=== PATIENT | female | born 1980 | race Two or more races ===

== ENCOUNTER 2016-12-22 13:08 | Emergency (ER) | payer MEDICAID ==
[~2016-12-22] VITALS: Ht 156.2 cm; Wt 70.0 kg
[~2016-12-22 13:08] MED LIST: CYCL1TAB29 PO; NAPR500 PO
[2016-12-22 13:15] VITALS: BP 131/74; PULSE 81; RESP 16; TEMP 98.1; O2SAT 98
[2016-12-22 13:30] VITALS: RESP 16; O2SAT 98
[2016-12-22 13:45] VITALS: BP 136/73; PULSE 64; RESP 16
[2016-12-22] MEDS ORDERED: ONDANSETRON HCL 4 MG/2 ML VIAL IV PUSH ONE (13:45)
[2016-12-22] MEDS ORDERED: KETOROLAC TROMETHAMINE 30 MG/ML (IVP) VIAL IV PUSH ONE (13:45)
[2016-12-22] MEDS ORDERED: SODIUM CHLOR 0.9% 1000 ML INJ 1,000 ML IV ONE (13:45)
[2016-12-22] MEDS ORDERED: SODIUM CHLORIDE 0.9% FLUSH 5 ML FLUSH IVF PRN (13:45)
--- NOTE | 2016-12-22 14:04 | PD ---
HPI Chief Complaint: Chest Pain Time Seen by Provider: 13:36 Travel History International Travel<30 days: No Contact w/Intl Traveler<30days: No Traveled to known affect area: No History of Present Illness HPI 36yo F with PMH of cervical disc herniation s/p surgery presents to the ED with c/o left sided chest pain along with stomach pain yesterday. However, now she has left headache, neck pain, upper back pain, and shoulder pain. Pain is worst with movement. Pt took advil and it did not help. +Nausea. Feels sob at times. States she has been very stress lately with her mother being sick. Denies any fever, cough, vomiting, abdominal pain. Abdominal pain from yesterday has resolved on its own. States headache feels like her usual headaches. No cardiac risk factor except occasional cig smoking. Denies any family history of sudden cardiac . PFSH Past Medical History Genitourinary: Yes (uti's) Thyroid Disease: Yes (no meds for) Tetanus Vaccination: > 5 Years Influenza Vaccination: No ?: Not LMP: 12/03/16 : 5 Para: 3 Miscarriage: 2 Past Surgical History Neurologic Surgery: Yes (c5 disc repl surg) Other Surgery: Yes (tummy tuck) Social History Alcohol Use: Yes (occas- wine) Tobacco Use: Yes (1-3 cigs once a week or less) Substance Use: No Allergies-Medications (Allergen,Severity, Reaction): Coded Allergies: Hydrocodone (Verified Allergy, Mild, RASH, 12/22/16) Penicillin (Verified Allergy, Unknown, UNKNOWN, 12/22/16) Reported Meds & Prescriptions Reported Meds & Active Scripts Active Acetaminophen Extra Strength (Acetaminophen) 500 Mg Tab 500 Mg PO Q6H PRN Flexeril (Cyclobenzaprine HCl) 10 Mg Tab 10 Mg PO Q8HR PRN Review of Systems Except as stated in HPI: all other systems reviewed are Neg Physical Exam Narrative GENERAL: 36yo F not in distress. SKIN: Warm and dry. HEAD: Atraumatic. Normocephalic. EYES: Pupils equal and round. No scleral icterus. No injection or drainage. ENT: No nasal bleeding or discharge. Mucous membranes pink and moist. NECK: Trachea midline. No JVD. CARDIOVASCULAR: Regular rate and rhythm. No murmur appreciated. CHEST WALL: +TTP left chest. No rash. RESPIRATORY: No accessory muscle use. Clear to auscultation. Breath sounds equal bilaterally. GASTROINTESTINAL: Abdomen soft, non-tender, nondistended. MUSCULOSKELETAL: +TTP left trapezius, left paraspinal muscle neck. No obvious deformities. No clubbing. No cyanosis. No edema. NEUROLOGICAL: Awake and alert. No obvious cranial nerve deficits. Motor grossly within normal limits. Normal speech. PSYCHIATRIC: Appropriate mood and affect; insight and judgment normal. Data Data Last Documented VS Vital Signs Date Time Temp Pulse Resp B/P Pulse Ox O2 Delivery O2 Flow Rate FiO2 12/22/16 16:39 68 16 104/62 99 12/22/16 15:25 Room Air 12/22/16 13:15 98.1 Orders Basic Metabolic Panel (Bmp) (12/22/16 13:44) Ckmb (Isoenzyme) Profile (12/22/16 13:44) Complete Blood Count With Diff (12/22/16 13:44) Magnesium (Mg) (12/22/16 13:44) Prothrombin Time / Inr (Pt) (12/22/16 13:44) Act Partial Throm Time (Ptt) (12/22/16 13:44) Troponin I (12/22/16 13:44) Chest, Single Ap (12/22/16 13:44) Ecg Monitoring (12/22/16 13:44) Bilateral Bp Monitoring (12/22/16 13:44) Iv Access Insert/Monitor (12/22/16 13:44) Oximetry (12/22/16 13:44) Oxygen Administration (12/22/16 13:44) Sodium Chloride 0.9% Flush (Ns Flush) (12/22/16 13:45) Ketorolac Inj (Toradol Inj) (12/22/16 13:45) Ondansetron Inj (Zofran Inj) (12/22/16 13:45) Sodium Chlor 0.9% 1000 Ml Inj (Ns 1000 M (12/22/16 13:45) CKMB (12/22/16 13:58) CKMB% (12/22/16 13:58) Diazepam (Valium) (12/22/16 15:00) Electrocardiogram (12/22/16 13:18) Acetaminophen (Tylenol) (12/22/16 16:00) Labs Laboratory Tests Test 12/22/16 13:58 White Blood Count 8.0 TH/MM3 Red Blood Count 4.36 MIL/MM3 Hemoglobin 12.9 GM/DL Hematocrit 38.8 % Mean Corpuscular Volume 89.1 FL Mean Corpuscular Hemoglobin 29.7 PG Mean Corpuscular Hemoglobin 33.4 % Concent Red Cell Distribution Width 12.1 % Platelet Count 189 TH/MM3 Mean Platelet Volume 9.6 FL Neutrophils (%) (Auto) 62.7 % Lymphocytes (%) (Auto) 30.8 % Monocytes (%) (Auto) 4.6 % Eosinophils (%) (Auto) 1.4 % Basophils (%) (Auto) 0.5 % Neutrophils # (Auto) 5.0 TH/MM3 Lymphocytes # (Auto) 2.5 TH/MM3 Monocytes # (Auto) 0.4 TH/MM3 Eosinophils # (Auto) 0.1 TH/MM3 Basophils # (Auto) 0.0 TH/MM3 CBC Comment DIFF FINAL Differential Comment Prothrombin Time 10.3 SEC Prothromb Time International 0.9 RATIO Ratio Activated Partial 25.9 SEC Thromboplast Time Sodium Level 142 MEQ/L Potassium Level 3.5 MEQ/L Chloride Level 105 MEQ/L Carbon Dioxide Level 27.4 MEQ/L Anion Gap 10 MEQ/L Blood Urea Nitrogen 10 MG/DL Creatinine 0.66 MG/DL Estimat Glomerular Filtration 101 ML/MIN Rate Random Glucose 124 MG/DL Calcium Level 9.1 MG/DL Magnesium Level 2.3 MG/DL Total Creatine Kinase 105 U/L Creatine Kinase MB LESS THAN 0.5 NG/ML Troponin I LESS THAN 0.02 NG/ML MDM Medical Decision Making Medical Screen Exam Complete: Yes Emergency Medical Condition: Yes Interpretation(s) EKG: NSR 75bpm. Normal axis. Q wave III. No ST segment elevation or depression. Differential Diagnosis Atypical chest pain vs. tension headache vs. musculoskeletal pain vs. costochondritis Narrative Course 36yo F with left chest pain, left shoulder/trapezius pain and left headache. Chest pain is very atypical. Headache is more of a tension type headache. Labs reviewed, no leukocytosis. Troponin negative. CXR negative. Pt given toradol, zofran and NS IVF which relieved the headache. Pt given valium 5mg PO which improved the left neck and shoulder pain. It seems very musculoskeletal. States that her chest pain is improved but still there. Offered observation for chest pain center for serial EKG and cardiac enzyme but pt does not want to stay. States she will call her PMD for follow up tomorrow. Return precautions given. Diagnosis Primary Impression: Atypical chest pain Patient Instructions: General Instructions Departure Forms: Tests/Procedures Additional Instructions: Please call PMD for appointment tomorrow for further work up. Return to the ED if you have any worsening symptoms. Med/Other Pt SpecificInfo: Prescription(s) given Scripts Acetaminophen (Acetaminophen Extra Strength)500 Mg [id number] Mg PO Q6H PRN (PAIN SCALE 1 TO 4) #20 TAB Ref 0 Prov:Tatyana Valentine DO 12/22/16 Disposition: 01 DISCHARGE HOME Condition: Stable Tatyana Valentine DO Dec 22, 2016 14:03
[2016-12-22 14:08] LABS: BASOPHIL % 0.5 % (0.0-2.0); EOSINOPHIL # 0.1 TH/MM3 (0-0.4); EOSINOPHIL % 1.4 % (0.0-4.0); HEMATOCRIT 38.8 % (35.0-46.0); HEMO FLAGS DIFF FINAL; LYMPH % 30.8 % (9.0-44.0); LYMPHOCYTE # 2.5 TH/MM3 (1.0-4.8); MEAN CELL VOLUME 89.1 FL (80.0-100.0); MEAN CORPUSCULAR HEMOGLOBIN 29.7 PG (27.0-34.0); MEAN CORPUSCULAR HGB CONC 33.4 % (32.0-36.0); MONO % 4.6 % (0.0-8.0); NEUT % 62.7 % (16.0-70.0); PLATELET COUNT 189 TH/MM3 (150-450); RED BLOOD COUNT 4.36 MIL/MM3 (4.00-5.30); RED CELL DISTRIBUTION WIDTH 12.1 % (11.6-17.2)
[2016-12-22 14:13] LABS: CHLORIDE 105 MEQ/L (98-107); POTASSIUM 3.5 MEQ/L (3.5-5.1); SODIUM (NA) 142 MEQ/L (136-145)
[2016-12-22 14:16] LABS: ANION GAP 10 MEQ/L (5-15); APTT (PATIENT) 25.9 SEC (24.3-30.1); BICARBONATE 27.4 MEQ/L (21.0-32.0); INTERNATIONAL NORMALIZED RATIO 0.9 RATIO; MAGNESIUM 2.3 MG/DL (1.5-2.5); PROTHROMBIN TIME - PATIENT 10.3 SEC (9.8-11.6)
[2016-12-22 14:17] LABS: BLOOD UREA NITROGEN 10 MG/DL (7-18)
[2016-12-22 14:20] LABS: GLOMERULAR FILTRATION RATE 101 ML/MIN (>89)
[2016-12-22 14:23] LABS: CREATINE KINASE 105 U/L (26-192)
--- NOTE | 2016-12-22 14:31 | RADHPO ---
EXAM DATE/TIME: 12/22/2016 13:52 [facility] COMPARISON: No previous studies available for comparison. INDICATIONS : Chest pain. MEDICAL HISTORY : None. SURGICAL HISTORY : None. ENCOUNTER: Initial ACUITY: 2 days PAIN SCORE: 8/10 LOCATION: Left upper/ mid chest. FINDINGS: A single view of the chest demonstrates the lungs to be symmetrically aerated without evidence of mas s, infiltrate or effusion. The cardiomediastinal contours are unremarkable. Osseous structures are intact. CONCLUSION: No acute disease. Ifeanyi Amin MD on December 22, 2016 at 14:29 Board Certified Radiologist. This report was verified electronically.
[2016-12-22 14:35] LABS: CKMB LESS THAN 0.5 NG/ML (0.5-3.6)
[2016-12-22] MEDS ORDERED: DIAZEPAM 5 MG TAB PO ONE (15:00)
[2016-12-22 15:19] VITALS: BP 127/72; PULSE 61; RESP 16
[2016-12-22] MEDS ORDERED: ACET500T36 PO (15:55)
[2016-12-22] MEDS ORDERED: ACETAMINOPHEN 325 MG TAB PO ONE (16:00)
[2016-12-22 16:39] VITALS: BP 104/62
--- NOTE | 2016-12-23 20:05 | EKG ---
Date Performed: 12/22/2016 Time Performed: 13:18:12 PTAGE: 36 years EKG: Sinus rhythm Low QRS voltages in precordial leads Nonspecific ST and T wave abnormalities Borderline ECG PREVIOUS TRACING : 06/24/2015 14.06 Compared to prior tracing no significant change DOCTOR: Mario Sol Interpretating Date/Time 12/23/2016 20:05:04
== END 2016-12-22 16:42 | disposition home or self-care (01) ==
LOC: PHED 13:08
DX: R07.89 Other chest pain (principal); M54.2 Cervicalgia; M25.512 Pain in left shoulder; M54.6 Pain in thoracic spine; R11.0 Nausea; R06.02 Shortness of breath; R94.31 Abnormal electrocardiogram [ECG] [EKG]; E07.9 Disorder of thyroid, unspecified; Z72.0 Tobacco use; Z87.440 Personal history of urinary (tract) infections
CPT/HCPCS: 71010; 80048; 82550; 82552; 83735; 84484; 85025; 85610; 85730; 93005; 96361; 96374; 96375; 99285; J1885; J2405; J7030

== ENCOUNTER 2017-11-03 18:03 | Emergency (ER) | payer MEDICAID ==
[~2017-11-03] VITALS: Ht 156.2 cm; Wt 73.6 kg
[~2017-11-03 18:03] MED LIST changes: +ACET500T36 PO; +CYCL10TA PO; -CYCL1TAB29 PO; -NAPR500 PO
[2017-11-03 18:04] VITALS: BP 113/57; PULSE 82; RESP 16; TEMP 98.3; O2SAT 99
[2017-11-03 18:59] LABS: AUTOMATED NEUTROPHIL # 6.7 TH/MM3 (1.8-7.7); BASOPHIL % 0.2 % (0.0-2.0); EOSINOPHIL # 0.1 TH/MM3 (0-0.4); EOSINOPHIL % 0.9 % (0.0-4.0); HEMATOCRIT 32.7 % (35.0-46.0); HEMOGLOBIN 10.6 GM/DL (11.6-15.3); LYMPH % 19.6 % (9.0-44.0); LYMPHOCYTE # 1.7 TH/MM3 (1.0-4.8); MEAN CELL VOLUME 88.9 FL (80.0-100.0); MEAN CORPUSCULAR HEMOGLOBIN 28.8 PG (27.0-34.0); MEAN CORPUSCULAR HGB CONC 32.5 % (32.0-36.0); MONO % 4.7 % (0.0-8.0); MONOCYTE # 0.4 TH/MM3 (0-0.9); NEUT % 74.6 % (16.0-70.0); PLATELET COUNT 216 TH/MM3 (150-450); RED BLOOD COUNT 3.68 MIL/MM3 (4.00-5.30); RED CELL DISTRIBUTION WIDTH 11.7 % (11.6-17.2); WHITE BLOOD COUNT 8.9 TH/MM3 (4.0-11.0)
[2017-11-03 19:00] VITALS: BP 114/63; PULSE 79; RESP 18; O2SAT 99
[2017-11-03 19:00] LABS: BILIRUBIN, URINE NEG (NEG); BLOOD, URINE SMALL (NEG); GLUCOSE,URINE NEG (NEG); KETONE, URINE NEG (NEG); NITRITE,URINE NEG (NEG); URINE LEUKOCYTE ESTERASE NEG (NEG)
[2017-11-03 19:06] LABS: SQUAMOUS EPITHELIAL CELL URINE 0-5 /hpf (0-5); URINE COLOR YELLOW (YELLW/STRAW); WBC, URINE 0-2 /hpf (0-5)
[2017-11-03 19:13] LABS: BICARBONATE 25.4 MEQ/L (21.0-32.0); CALCIUM 8.4 MG/DL (8.5-10.1)
[2017-11-03 19:17] LABS: CREATININE 0.51 MG/DL (0.50-1.00)
--- NOTE | 2017-11-03 19:51 | PD ---
HPI Chief Complaint: Related Problem Time Seen by Provider: 18:40 Travel History International Travel<30 days: No Contact w/Intl Traveler<30days: No Traveled to known affect area: No History of Present Illness HPI 37-year-old female 7 para 3 (2 prior abortions) last menstruation reported to be 8 weeks prior. 2 days prior she had pink discharge with urination. She reports pain in the left pelvis leading to ER evaluation today. She's had no bleeding since. She denies white discharge. No prior ultrasound has been performed. Pain is of moderate severity. No similar prior episodes have occurred. No dysuria or urinary frequency. PFSH Past Medical History Genitourinary: Yes (uti's) Thyroid Disease: Yes (no meds for) Influenza Vaccination: No ?: LMP: 09/03/2017 : 7 Para: 3 Miscarriage: 1 : 2 Past Surgical History Neurologic Surgery: Yes (c5 disc repl surg) Other Surgery: Yes (tummy tuck) Social History Alcohol Use: No Tobacco Use: No (denies) Substance Use: No Allergies-Medications (Allergen,Severity, Reaction): Coded Allergies: hydrocodone (Unverified Allergy, Mild, RASH, 05/30/17) penicillin G (Unverified Allergy, Unknown, UNKNOWN, 05/30/17) Reported Meds & Prescriptions Reported Meds & Active Scripts Active Plus Iron 29-1 mg ( Vit-Iron Carbonyl) 29 Mg Iron-1 Mg Tab 1 Tab PO DAILY Review of Systems Except as stated in HPI: all other systems reviewed are Neg General / Constitutional: Positive: Fever Physical Exam Narrative GENERAL: 37-year-old female pleasant well-nourished well-developed GENITOURINARY: No significant CMT or adnexal tenderness on exam. No significant discharge in the vault. Os closed. SKIN: Warm and dry. HEAD: Atraumatic. Normocephalic. EYES: Pupils equal and round. No scleral icterus. No injection or drainage. ENT: No nasal bleeding or discharge. Mucous membranes pink and moist. NECK: Trachea midline. No JVD. CARDIOVASCULAR: Regular rate and rhythm. RESPIRATORY: No accessory muscle use. Clear to auscultation. Breath sounds equal bilaterally. GASTROINTESTINAL: Abdomen is soft. There is no rebound. Minimal tenderness to palpation of the left side. MUSCULOSKELETAL: Extremities without clubbing, cyanosis, or edema. No obvious deformities. NEUROLOGICAL: Awake and alert. No obvious cranial nerve deficits. Motor grossly within normal limits. Five out of 5 muscle strength in the arms and legs. Normal speech. PSYCHIATRIC: Appropriate mood and affect; insight and judgment normal. Data Data Last Documented VS Vital Signs Date Time Temp Pulse Resp B/P (MAP) Pulse Ox O2 Delivery O2 Flow Rate FiO2 11/03/17 20:15 75 18 119/62 (81) 97 Room Air 11/03/17 18:04 98.3 Vital signs reviewed Orders Orders Complete Blood Count With Diff (11/03/17 18:38) Urinalysis - C+S If Indicated (11/03/17 18:38) Beta Hcg (Quant/Titer) (11/03/17 18:38) Basic Metabolic Panel (Bmp) (11/03/17 18:38) Abo/Rh Blood Type (11/03/17 18:38) Gc And Chlamydia Pcr (11/03/17 19:18) Us Pelvis (Ques Preg/Ectopic) (11/03/17 ) Wet Prep Profile (11/03/17 19:18) Ed Discharge Order (11/03/17 21:18) Labs Laboratory Tests Test 11/03/17 18:50 11/03/17 20:04 White Blood Count 8.9 TH/MM3 Red Blood Count 3.68 MIL/MM3 Hemoglobin 10.6 GM/DL Hematocrit 32.7 % Mean Corpuscular Volume 88.9 FL Mean Corpuscular Hemoglobin 28.8 PG Mean Corpuscular Hemoglobin Concent 32.5 % Red Cell Distribution Width 11.7 % Platelet Count 216 TH/MM3 Mean Platelet Volume 10.0 FL Neutrophils (%) (Auto) 74.6 % Lymphocytes (%) (Auto) 19.6 % Monocytes (%) (Auto) 4.7 % Eosinophils (%) (Auto) 0.9 % Basophils (%) (Auto) 0.2 % Neutrophils # (Auto) 6.7 TH/MM3 Lymphocytes # (Auto) 1.7 TH/MM3 Monocytes # (Auto) 0.4 TH/MM3 Eosinophils # (Auto) 0.1 TH/MM3 Basophils # (Auto) 0.0 TH/MM3 CBC Comment DIFF FINAL Differential Comment Urine Color YELLOW Urine Turbidity CLEAR Urine pH 6.0 Urine Specific [place] 1.022 Urine Protein NEG mg/dL Urine Glucose (UA) NEG mg/dL Urine Ketones NEG mg/dL Urine Occult Blood SMALL Urine Nitrite NEG Urine Bilirubin NEG Urine Leukocyte Esterase NEG Urine RBC 3-5 /hpf Urine WBC 0-2 /hpf Urine Squamous Epithelial Cells 0-5 /hpf Urine Bacteria NONE /hpf Microscopic Urinalysis Comment CULT NOT INDICATED Blood Urea Nitrogen 7 MG/DL Creatinine 0.51 MG/DL Random Glucose 119 MG/DL Calcium Level 8.4 MG/DL Sodium Level 137 MEQ/L Potassium Level 3.3 MEQ/L Chloride Level 105 MEQ/L Carbon Dioxide Level 25.4 MEQ/L Anion Gap 7 MEQ/L Estimat Glomerular Filtration Rate 136 ML/MIN Human Chorionic Gonadotropin, Quant 17987 MIU/ML Clue Cells (Wet Prep) NONE SEEN Vaginal Trichomonas (Wet Prep) NONE SEEN Vaginal Yeast (Wet Prep) NONE SEEN MDM Medical Decision Making Medical Screen Exam Complete: Yes Emergency Medical Condition: Yes Medical Record Reviewed: Yes Differential Diagnosis IUP, UTI, ectopic , ov torsion, appendicitis, TOA, cervicitis, BV, Trichomoniasis, ov cyst, hernia, mittelschmerz, pain from menstruation Narrative Course CBC & BMP Diagram 11/03/17 18:50 Calcium Level 8.4 L Urine showed small blood The beta hCG is 50,160 Last Impressions Pelvis Ultrasound 11/03/17 0000 Signed Impressions: Service Date/Time: Friday, November 03, 2017 20:09 - CONCLUSION: 1. 9 week 5 day intrauterine gestation with heart rate of 161 beats per minute. Jesu Arboleda Jr., MD Blood type is A+ The patient's ready for discharge home Repeat 48 hour beta hcg follow up discussed with patient Diagnosis Primary Impression: Threatened Referrals: Prabhakar Shaver MD [facility] Additional Instructions: PLEASE FOLLOW UP WITH [facility] IN 48 HOURS FOR A REPEAT 48 HOUR BETA HCG TEST. YOUR BETA HCG LEVEL TODAY IS 51,000. IT SHOULD APPROXIMATELY DOUBLE IN 48 HOURS. Med/Other Pt SpecificInfo: Prescription(s) given Scripts Vit-Iron Carbonyl ( Plus Iron 29-1 mg) 29 Mg Iron-1 Mg Tab 1 TAB PO DAILY for Nutritional Supplement, #30 TAB 0 Refills Prov: Amadou Sol MD 11/03/17 Disposition: DISCHARGE HOME Condition: Stable Amadou Sol MD Nov 03, 2017 19:51
[2017-11-03 20:15] VITALS: BP 119/62; PULSE 75; RESP 18; O2SAT 97
--- NOTE | 2017-11-03 20:37 | RADRPT ---
EXAM DATE/TIME: 11/03/2017 20:09 [facility] COMPARISON: No previous studies available for comparison. INDICATIONS : Pelvic pain. LAB(S): Beta-hC,160 MEDICAL HISTORY : . Hypothyroidism. Pelvic pain. SURGICAL HISTORY : Tummy tuck. ENCOUNTER: Initial ACUITY: 3 days PAIN SCORE: 3/10 LOCATION: Bilateral pelvis MEASUREMENTS: UTERUS: 11.5 x 6.0 x 7.3 cm ENDOMETRIAL STRIPE: >20 mm RIGHT OVARY: 3.3 x 1.6 x 1.9 cm LEFT OVARY: 2.3 x 2.3 x 2.0 cm FREE FLUID: None CROWN RUMP LENGTH: 2.9 cm = 9 WKS 5 DAYS FHR: 161 BPM FINDINGS: UTERUS: Single uterine gestation observed. Age by crown-rump length is 9 weeks 5 days. heart rate is 16 1 beats per minute. RIGHT OVARY: Ovary contains no mass or significant cystic lesion. LEFT OVARY: Ovary contains no mass or significant cystic lesion. MISCELLANEOUS: No free fluid. CONCLUSION: 1. 9 week 5 day intrauterine gestation with heart rate of 161 beats per minute. Jesu Arboleda Jr., MD on November 03, 2017 at 20:33 Board Certified Radiologist. This report was verified electronically.
[2017-11-03] MEDS ORDERED: PREN29TA PO (20:42)
[2017-11-03 21:29] VITALS: BP 118/65
== END 2017-11-03 21:44 | disposition home or self-care (01) ==
LOC: PHED 18:03
DX: O20.0 Threatened abortion (principal)
CPT/HCPCS: 76700; 80048; 81001; 84702; 85025; 86900; 86901; 87210; 87491; 87591; 99284

== ENCOUNTER 2017-11-29 12:13 | Emergency (ER) | payer MEDICAID, OTHER ==
[~2017-11-29] VITALS: Ht 166.4 cm; Wt 73.0 kg
[~2017-11-29 12:13] MED LIST changes: -ACET500T36 PO; -CYCL10TA PO; +PREN29TA PO
[2017-11-29 12:25] VITALS: BP 108/56; PULSE 77; RESP 16; TEMP 98.1; O2SAT 99
[2017-11-29 13:00] VITALS: BP 99/60; PULSE 88; RESP 20; O2SAT 97
[2017-11-29] MEDS ORDERED: SODIUM CHLOR 0.9% 1000 ML INJ 1,000 ML IV ONE (13:00)
[2017-11-29] MEDS ORDERED: ACETAMINOPHEN 325 MG TAB PO ONE (13:00)
[2017-11-29 13:28] LABS: AUTOMATED NEUTROPHIL # 6.7 TH/MM3 (1.8-7.7); BASOPHIL # 0.3 TH/MM3 (0-0.2); BASOPHIL % 2.7 % (0.0-2.0); EOSINOPHIL # 0.1 TH/MM3 (0-0.4); HEMOGLOBIN 11.1 GM/DL (11.6-15.3); LYMPH % 20.1 % (9.0-44.0); LYMPHOCYTE # 1.9 TH/MM3 (1.0-4.8); MEAN CELL VOLUME 88.3 FL (80.0-100.0); MEAN CORPUSCULAR HEMOGLOBIN 29.9 PG (27.0-34.0); MEAN CORPUSCULAR HGB CONC 33.8 % (32.0-36.0); MEAN PLATELET VOLUME 10.4 FL (7.0-11.0); MONO % 3.2 % (0.0-8.0); MONOCYTE # 0.3 TH/MM3 (0-0.9); PLATELET COUNT 195 TH/MM3 (150-450); RED BLOOD COUNT 3.74 MIL/MM3 (4.00-5.30); RED CELL DISTRIBUTION WIDTH 11.7 % (11.6-17.2); WHITE BLOOD COUNT 9.3 TH/MM3 (4.0-11.0)
[2017-11-29 13:32] LABS: BILIRUBIN, URINE NEG (NEG); BLOOD, URINE TRACE (NEG); GLUCOSE,URINE NEG (NEG); KETONE, URINE NEG (NEG); NITRITE,URINE NEG (NEG); URINE LEUKOCYTE ESTERASE NEG (NEG)
[2017-11-29 13:37] LABS: CHLORIDE 104 MEQ/L (98-107); SODIUM (NA) 137 MEQ/L (136-145)
[2017-11-29 13:40] LABS: ALBUMIN 3.4 GM/DL (3.4-5.0); BICARBONATE 26.1 MEQ/L (21.0-32.0); BLOOD UREA NITROGEN 6 MG/DL (7-18); CALCIUM 8.9 MG/DL (8.5-10.1); GLUCOSE,RANDOM 115 MG/DL (74-106)
[2017-11-29 13:43] LABS: URINE COLOR YELLOW (YELLW/STRAW)
[2017-11-29 13:43] LABS: ALT (GPT) 13 U/L (10-53); AST (GOT) 17 U/L (15-37)
[2017-11-29 13:44] LABS: AMORPHOUS SEDIMENT, URINE LARGE; BACTERIA, URINE MOD /hpf; SQUAMOUS EPITHELIAL CELL URINE 0-5 /hpf (0-5)
[2017-11-29 13:44] LABS: CREATININE 0.63 MG/DL (0.50-1.00); GLOMERULAR FILTRATION RATE 106 ML/MIN (>89)
[2017-11-29 13:45] LABS: TOTAL BILIRUBIN ADULT 0.2 MG/DL (0.2-1.0); TOTAL PROTEIN 7.7 GM/DL (6.4-8.2)
[2017-11-29 13:46] LABS: ALKALINE PHOSPHATASE 49 U/L (45-117)
--- NOTE | 2017-11-29 14:29 | PD ---
HPI Chief Complaint: Related Problem Time Seen by Provider: 12:47 Travel History International Travel<30 days: No Contact w/Intl Traveler<30days: No Traveled to known affect area: No History of Present Illness HPI Patient is a 37 year old female who comes in complaining lower abdominal cramping. She is approximately 12 weeks . She says this started a few days ago. She does report continued nausea and vomiting associated with the . She denies fever or chills. She says it feels like cramping in her lower back and suprapubic area. She says she has had some white discharge, but denies any bleeding recently. She has had 3 other pregnancies and never experienced this before. She has not taken anything for her symptoms. She says nothing seems to make it better. Severity is mild to moderate. PFSH Past Medical History Diminished Hearing: No Gestational Age in Weeks: 12 Genitourinary: Yes (uti's) Thyroid Disease: Yes (no meds for) Tetanus Vaccination: Unknown Influenza Vaccination: No ?: LMP: 09/03/17 : 7 Para: 3 Miscarriage: 1 : 2 Past Surgical History Surgical History: No Previous Surgery Neurologic Surgery: Yes (c5 disc repl surg) Other Surgery: Yes (tummy tuck) Social History Alcohol Use: No Tobacco Use: No (denies) Substance Use: No Allergies-Medications (Allergen,Severity, Reaction): Coded Allergies: hydrocodone (Unverified Allergy, Mild, RASH, 11/29/17) penicillin G (Unverified Allergy, Unknown, UNKNOWN, 11/29/17) Reported Meds & Prescriptions Reported Meds & Active Scripts Active Plus Iron 29-1 mg ( Vit-Iron Carbonyl) 29 Mg Iron-1 Mg Tab 1 Tab PO DAILY Review of Systems Except as stated in HPI: all other systems reviewed are Neg General / Constitutional: No: Fever, Chills HENT: No: Headaches, Lightheadedness Cardiovascular: No: Chest Pain or Discomfort Respiratory: No: Shortness of Breath Gastrointestinal: Positive: Nausea, Vomiting, Abdominal Pain Genitourinary: No: Dysuria Musculoskeletal: No: Myalgias Skin: No Rash, No Change in Pigmentation Neurologic: No: Weakness, Dizziness Physical Exam Narrative GENERAL: Awake and alert, in no acute distress. SKIN: Focused skin assessment warm/dry. No wounds or signs of infection. HEAD: Atraumatic. Normocephalic. EYES: Pupils equal and round. No scleral icterus. No injection or drainage. ENT: Mucous membranes pink and moist. NECK: Trachea midline. No JVD. CARDIOVASCULAR: Regular rate and rhythm. No murmur appreciated. RESPIRATORY: No accessory muscle use. Clear to auscultation. Breath sounds equal bilaterally. GASTROINTESTINAL: Gravid abdomen, mild tenderness to the suprapubic area. No CVA tenderness. MUSCULOSKELETAL: No obvious deformities. No clubbing. No cyanosis. No edema. NEUROLOGICAL: Awake and alert. No obvious cranial nerve deficits. Motor grossly within normal limits. Normal speech. PSYCHIATRIC: Appropriate mood and affect; insight and judgment normal. Data Data Last Documented VS Vital Signs Date Time Temp Pulse Resp B/P (MAP) Pulse Ox O2 Delivery O2 Flow Rate FiO2 11/29/17 13:00 88 20 99/60 (73) 97 Room Air 11/29/17 12:25 98.1 Orders Orders Iv Access Insert/Monitor (11/29/17 12:57) Complete Blood Count With Diff (11/29/17 12:57) Comprehensive Metabolic Panel (11/29/17 12:57) Urinalysis - C+S If Indicated (11/29/17 12:57) Sodium Chlor 0.9% 1000 Ml Inj (Ns 1000 M (11/29/17 13:00) Acetaminophen (Tylenol) (11/29/17 13:00) Wet Prep Profile (11/29/17 12:57) Gc And Chlamydia Pcr (11/29/17 12:57) Urine Culture (11/29/17 12:30) Ed Poc Ultrasound (11/29/17 ) Labs Laboratory Tests Test 11/29/17 12:30 11/29/17 13:00 11/29/17 13:16 Urine Collection Type CLEAN CATCH Urine Color YELLOW Urine Turbidity CLOUDY Urine pH 8.0 Urine Specific [place] 1.027 Urine Protein NEG mg/dL Urine Glucose (UA) NEG mg/dL Urine Ketones NEG mg/dL Urine Occult Blood TRACE Urine Nitrite NEG Urine Bilirubin NEG Urine Leukocyte Esterase NEG Urine Squamous Epithelial Cells 0-5 /hpf Urine Amorphous Sediment LARGE Urine Bacteria MOD /hpf Microscopic Urinalysis Comment CULTURE INDICATED Clue Cells (Wet Prep) NONE SEEN Vaginal Trichomonas (Wet Prep) NONE SEEN Vaginal Yeast (Wet Prep) NONE SEEN White Blood Count 9.3 TH/MM3 Red Blood Count 3.74 MIL/MM3 Hemoglobin 11.1 GM/DL Hematocrit 33.0 % Mean Corpuscular Volume 88.3 FL Mean Corpuscular Hemoglobin 29.9 PG Mean Corpuscular Hemoglobin Concent 33.8 % Red Cell Distribution Width 11.7 % Platelet Count 195 TH/MM3 Mean Platelet Volume 10.4 FL Neutrophils (%) (Auto) 73.0 % Lymphocytes (%) (Auto) 20.1 % Monocytes (%) (Auto) 3.2 % Eosinophils (%) (Auto) 1.0 % Basophils (%) (Auto) 2.7 % Neutrophils # (Auto) 6.7 TH/MM3 Lymphocytes # (Auto) 1.9 TH/MM3 Monocytes # (Auto) 0.3 TH/MM3 Eosinophils # (Auto) 0.1 TH/MM3 Basophils # (Auto) 0.3 TH/MM3 CBC Comment DIFF FINAL Differential Comment Blood Urea Nitrogen 6 MG/DL Creatinine 0.63 MG/DL Random Glucose 115 MG/DL Total Protein 7.7 GM/DL Albumin 3.4 GM/DL Calcium Level 8.9 MG/DL Alkaline Phosphatase 49 U/L Aspartate Amino Transf (AST/SGOT) 17 U/L Alanine Aminotransferase (ALT/SGPT) 13 U/L Total Bilirubin 0.2 MG/DL Sodium Level 137 MEQ/L Potassium Level 3.8 MEQ/L Chloride Level 104 MEQ/L Carbon Dioxide Level 26.1 MEQ/L Anion Gap 7 MEQ/L Estimat Glomerular Filtration Rate 106 ML/MIN [facility] Medical Decision Making Medical Screen Exam Complete: Yes Emergency Medical Condition: Yes Medical Record Reviewed: Yes Differential Diagnosis UTI versus dehydration versus BV Narrative Course Patient is a 37-year-old female who comes in complaining of lower abdominal and back cramping. Exam shows suprapubic tenderness. Biceps, absent. Labs show no acute abnormalities. Urinalysis is positive for bacteria. Patient given IV fluids and Tylenol. Pelvic ultrasound performed, confirms IUP, baby has an appropriate heart rate. Patient will be discharged with prescription for Macrobid. Advised to follow- up with OB. Advised to increase her fluid intake. Advised to return anytime with any worsening symptoms. Procedures Procedure Narrative Emergency Department Pelvic ultrasound was performed with patient consent. The curvilinear probe was used in the transverse and sagittal views within the suprapubic region revealing single intrauterine . heart rate was 148. Diagnosis Primary Impression: UTI (urinary tract infection) during Qualified Codes: O23.42 - Unspecified infection of urinary tract in , second trimester Patient Instructions: General Instructions, Urinary Tract Infection in (ED) Additional Instructions: Take all of your antibiotic. Increase her fluid intake. Follow-up with OB. Return to the ED as needed for any worsening symptoms. Scripts Nitrofurantoin Monohydrate Macrocrystals (Macrobid) 100 Mg Capsule 100 MG PO BID for Infection for 7 Days, #14 CAP 0 Refills Prov: Susanne Hoyt MD 11/29/17 Disposition: 01 DISCHARGE HOME Condition: Stable Susanne Hoyt MD Nov 29, 2017 14:29
[2017-11-29] MEDS ORDERED: MACR100C2 PO (15:13)
== END 2017-11-29 15:48 | disposition home or self-care (01) ==
LOC: PHED 12:13
DX: O23.41 Unspecified infection of urinary tract in pregnancy, first trimester (principal); Z3A.12 12 weeks gestation of pregnancy; Z88.5 Allergy status to narcotic agent; Z88.0 Allergy status to penicillin
CPT/HCPCS: 80053; 81001; 85025; 87086; 87210; 87491; 87591; 99283; J7030